=== PATIENT | male | born 1955 | race Caucasian/White ===

== ENCOUNTER 2016-10-04 14:17 | Inpatient (IN) | payer OTHER ==
[~2016-10-04] VITALS: Ht 185.4 cm; Wt 109.0 kg
[~2016-10-04 14:17] MED LIST: ALLOPURINOL300 MG PO; AMIODARONE HCL200 MG PO; Antivert PO; Apresoline PO; CENTRUM SILVER1 EAC3 PO; CLEOCIN300 MG PO; COLCHICINE,COL0.6 MG PO; Colace PO; Coreg PO; Dulcolax PO; ELIQUIS5 MG PO; FISH OIL 1,0001 EAC7 PO; INDOMETHACIN50 MG PO; LASIX20 MG PO; LEXAPRO10 MG PO; LEXAPRO20 MG PO; LISINOPRIL10 MG PO; NORVASC5 MG PO; PRAVASTATIN SOD40 MG PO; Phenergan IV; Pradaxa PO; THERAGRAN1 TABLET PO; TOPROL XL25 MG PO; Tylenol Regular Stre PO; Zestril,Prinivil PO; Zocor PO
[2016-10-04] MEDS ORDERED: BACTRIM,SEPT1 TABLET PO (16:54)
[2016-10-04 17:00] LABS: CHLORIDE 98 mEq/L (99-109); SODIUM 131 mEq/L (136-147)
[2016-10-04 17:02] LABS: GLUCOSE 102 mg/dL (70-99)
[2016-10-04 17:03] LABS: ANION GAP 11 MEQ/L (2-14)
[2016-10-04 17:04] LABS: TOTAL BILIRUBIN 0.8 mg/dL (0.0-1.0)
[2016-10-04 17:05] LABS: ALKALINE PHOSPHATASE 69 IU/L (3-129)
[2016-10-04 17:06] LABS: GFR ESTIMATE (CALCULATED) 15 mL/min/
[2016-10-04 17:07] LABS: UREA NITROGEN (BUN) 54 mg/dL (9-23)
[2016-10-04 17:09] LABS: LIPASE 28 U/L (1.0-51.0)
[2016-10-04 17:38] LABS: HEMATOCRIT 39.4 % (38.0-50.0); MCH 30.7 PG (29.0-34.0); MCHC 34.8 G/DL (30.0-36.0); MCV 88.3 FL (86-99); MEAN PLAT.VOLUME 13.1 uM^3 (9.0-12.4); PLATELET COUNT 92 K/uL (156-360); RBC DIS.WIDTH-CV 12.9 % (11.8-14.6); RBC DIS.WIDTH-SD 40.9 % (39-53); RED BLOOD COUNT 4.46 M/uL (4.00-5.50); WHITE BLOOD COUNT 5.4 K/uL (4.1-10.2)
[2016-10-04 18:56] LABS: CREATINE KINASE 324 IU/L (1-294); TOTAL CK 324 IU/L (1-294)
[2016-10-04 19:02] LABS: CK-MB 7.4 ng/mL (0.0-4.9)
[2016-10-04 20:34] LABS: ADD MIUA? YES; BILIRUBIN NEGATIVE; BLOOD NEGATIVE; COLOR DK YELLOW ((YELLOW)); GLUCOSE (STRIP) NEGATIVE; KETONES NEGATIVE; LEUKOCYTES NEGATIVE; NITRITE NEGATIVE; PH, URINE 5.5 (5-8); PROTEIN (STRIP) 30; SPECIFIC GRAVITY 1.022 (1.000-1.030); UROBILINOGEN 0.2 MG/DL (0.2-1.0)
[2016-10-04 21:00] LABS: BACTERIA RARE /HPF; EPITHELIAL CELLS NONE SEEN /HPF; HYALINE CASTS 20-30 /LPF; MUCUS TRACE /LPF; RED BLOOD CELLS 0-5 /HPF (0-5); UCUL ADDED? NO; UNCLASSIFIED CRYSTALS 2+ /HPF; WHITE BLOOD CELLS 0-5 /HPF (0-5)
[2016-10-04 21:20] VITALS: BP 134/72
[2016-10-05 00:24] VITALS: BP 102/64
[2016-10-05 04:40] VITALS: BP 116/53
[2016-10-05 07:30] LABS: ANION GAP 11 MEQ/L (2-14); CHLORIDE 101 MEQ/L (99-109); GLUCOSE 94 mg/dL (70-99); POTASSIUM 4.7 MEQ/L (3.7-5.4); SAMPLE HEMOLYSIS CHECK 1; SAMPLE ICTERIC CHECK 0; SAMPLE LIPEMIA CHECK 0; SODIUM 131 MEQ/L (136-147); UREA NITROGEN (BUN) 47 mg/dL (9-23)
[2016-10-05 07:32] LABS: GFR ESTIMATE (CALCULATED) 22 mL/min/
[2016-10-05 07:52] VITALS: BP 117/66
[2016-10-05 08:06] LABS: HEMATOCRIT 35.8 % (38.0-50.0); MCH 31.4 PG (29.0-34.0); MCHC 34.9 G/DL (30.0-36.0); MCV 89.9 FL (86-99); RBC DIS.WIDTH-CV 13.1 % (11.8-14.6); RBC DIS.WIDTH-SD 42.9 % (39-53); RED BLOOD COUNT 3.98 M/uL (4.00-5.50)
[2016-10-05 08:15] LABS: WHITE BLOOD COUNT 3.5 K/uL (4.1-10.2)
[2016-10-05 08:21] LABS: MEAN PLAT.VOLUME 13.1 uM^3 (9.0-12.4); PLATELET COUNT 87 K/uL (156-360)
[2016-10-05 11:10] VITALS: BP 105/57
[2016-10-05 14:56] VITALS: BP 122/64
[2016-10-05 20:00] VITALS: BP 128/59
[2016-10-06] VITALS: BP 123/74
[2016-10-06 04:04] VITALS: BP 155/83
[2016-10-06 07:52] VITALS: BP 122/72
[2016-10-06 09:39] LABS: ALKALINE PHOSPHATASE 70 IU/L (3-129); ANION GAP 10 MEQ/L (2-14); CHLORIDE 102 MEQ/L (99-109); GLUCOSE 102 mg/dL (70-99); POTASSIUM 4.6 MEQ/L (3.7-5.4); SAMPLE HEMOLYSIS CHECK 0; SAMPLE ICTERIC CHECK 0; SAMPLE LIPEMIA CHECK 0; SODIUM 135 MEQ/L (136-147); UREA NITROGEN (BUN) 36 mg/dL (9-23)
[2016-10-06 09:42] LABS: GFR ESTIMATE (CALCULATED) 36 mL/min/; TOTAL BILIRUBIN 0.5 MG/DL (0.0-1.0)
[2016-10-06 10:31] LABS: MEAN PLAT.VOLUME 12.9 uM^3 (9.0-12.4)
[2016-10-06 10:38] VITALS: BP 124/74
[2016-10-06 10:38] LABS: ABS NEUTROPHIL COUNT 1.99; ANISOCYTOSIS 1+; HEMATOCRIT 42.5 % (38.0-50.0); MACROCYTES OCC; MCHC 33.4 G/DL (30.0-36.0); MCV 89.9 FL (86-99); MICROCYTOSIS OCC; PLAT.SUFFICIENCY DECREASED; RBC DIS.WIDTH-CV 13.3 % (11.8-14.6); RBC DIS.WIDTH-SD 43.7 % (39-53); RED BLOOD COUNT 4.73 M/uL (4.00-5.50); TEAR DROP CELLS OCC; USER ID TLW; WHITE BLOOD COUNT 4.1 K/uL (4.1-10.2)
[2016-10-06 10:39] LABS: PLATELET COUNT 126 K/uL (156-360)
[2016-10-06] MEDS ORDERED: DOXYCYCLINE HY100 MG PO (13:17)
[2016-10-06] MEDS ORDERED: ALLOPURINOL100 MG PO (13:17)
[2016-10-06 14:18] LABS: DELETE MACHINE DIFF? YES
[2016-10-06 14:45] LABS: HBSG INDEX 0.18; HPCA INDEX 0.12
[2016-10-06 14:46] LABS: ANTI-HEPATITIS A VIRUS (IGM) Nonreactive; HAV INDEX 0.15
[2016-10-06 14:47] LABS: ANTI-HEPATITIS B CORE (IGM) Nonreactive; HBC IgM INDEX 0.27
== END 2016-10-06 18:02 | disposition home or self-care (01) | DRG 683 ==
LOC: EME 14:17 → EDOF 16:36 → 5SOUTH 16:36 → EDOF 16:49 → 5SOUTH 21:11
PROVIDERS: Internal Medicine; Student in an Organized Health Care Education/Training Program
DX: N17.9 Acute kidney failure, unspecified (principal); R11.2 Nausea with vomiting, unspecified; L03.115 Cellulitis of right lower limb; I10 Essential (primary) hypertension; I48.0 Paroxysmal atrial fibrillation; E78.2 Mixed hyperlipidemia; M10.9 Gout, unspecified; Z91.041 Radiographic dye allergy status; Z86.73 Personal history of transient ischemic attack (TIA), and cerebral infarction without residual deficits; Z96.642 Presence of left artificial hip joint
CPT/HCPCS: 36415; 73560; 80048; 80053; 80061; 80074; 80076; 80202; 81003; 82550 91; 82553; 82565; 83036; 83605; 83690; 84484; 84550; 85025; 85027; 86705; 86709; 86803; 87040; 87340; 87493; 93005; 93971; 99281; 99285; J0696; J3370; J7030; J7050

== ENCOUNTER 2017-05-16 08:48 | Day surgery (SDC) | payer OTHER ==
[~2017-05-16] VITALS: Ht 190.5 cm; Wt 123.8 kg
[~2017-05-16 08:48] MED LIST changes: +ALLOPURINOL100 MG PO; +ASCORBIC ACID500 M3 PO; +BACTRIM,SEPT1 TABLET PO; +DOXYCYCLINE HY100 MG PO; +FUROSEMIDE20 MG PO
== END 2017-05-16 11:13 | disposition home or self-care (01) ==
LOC: CATH 08:48
PROC: 5A2204Z Restoration of Cardiac Rhythm, Single (ICD-10-PCS; principal; 2017-05-16)
DX: I48.1 Persistent atrial fibrillation (principal); I11.0 Hypertensive heart disease with heart failure; I50.32 Chronic diastolic (congestive) heart failure; I42.0 Dilated cardiomyopathy; E66.09 Other obesity due to excess calories; Z68.36 Body mass index [BMI] 36.0-36.9, adult; I67.89 Other cerebrovascular disease; Z86.73 Personal history of transient ischemic attack (TIA), and cerebral infarction without residual deficits; Z79.01 Long term (current) use of anticoagulants; F17.220 Nicotine dependence, chewing tobacco, uncomplicated
CPT/HCPCS: 93005

== ENCOUNTER 2018-01-16 08:59 | Day surgery (SDC) | payer OTHER ==
[~2018-01-16] VITALS: Ht 185.4 cm; Wt 117.9 kg
[~2018-01-16 08:59] MED LIST changes: +VALSARTAN40 MG PO
== END 2018-01-16 11:10 | disposition home or self-care (01) ==
LOC: CATH 08:59
PROC: 5A2204Z Restoration of Cardiac Rhythm, Single (ICD-10-PCS; principal; 2018-01-16)
DX: I48.1 Persistent atrial fibrillation (principal); I42.0 Dilated cardiomyopathy; I50.32 Chronic diastolic (congestive) heart failure; F17.220 Nicotine dependence, chewing tobacco, uncomplicated; Z79.01 Long term (current) use of anticoagulants; Z79.02 Long term (current) use of antithrombotics/antiplatelets
CPT/HCPCS: 93005